=== PATIENT | male | born 2000 | race Caucasian/White ===

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

== ENCOUNTER 2021-05-11 18:42 | Emergency (ER) | payer MEDICAID, OTHER ==
[2021-05-11] MEDS ORDERED: Proparacaine 0.5% Ophth Soln 15 ML Bottle ONE (19:01)
[2021-05-11 19:20] VITALS: BP 140/95; PULSE 99
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
[2021-05-11] MEDS ORDERED: Proparacaine 0.5% Ophth Soln 15 ML Bottle EYERT ONE (20:03)
== END 2021-05-11 20:03 | disposition home or self-care (01) ==
LOC: JP.ED 18:42
DX: T15.91XA Foreign body on external eye, part unspecified, right eye, initial encounter (principal); Z88.2 Allergy status to sulfonamides; W22.8XXA Striking against or struck by other objects, initial encounter
CPT/HCPCS: 99283; A9270

== ENCOUNTER 2023-06-04 14:40 | Emergency (ER) | payer BC, MEDICAID, OTHER ==
[2023-06-04 15:38] VITALS: BP 130/93; PULSE 66
== END 2023-06-04 16:44 | disposition home or self-care (01) ==
LOC: JP.ED 14:40
DX: S81.811A Laceration without foreign body, right lower leg, initial encounter (principal); Z88.2 Allergy status to sulfonamides; Z79.899 Other long term (current) drug therapy; W26.8XXA Contact with other sharp object(s), not elsewhere classified, initial encounter
CPT/HCPCS: 12002; 99282

== ENCOUNTER 2024-01-14 21:29 | Emergency (ER) | payer MEDICAID, OTHER ==
[2024-01-14 22:05] VITALS: PULSE 82
[2024-01-14] MEDS: Ketorolac 30 MG/ML SDV IM ONE (23:08)
[2024-01-14] MEDS: Ketorolac 10 MG Tab PO ONE (23:35)
[2024-01-15 00:57] VITALS: BP 150/74
== END 2024-01-15 00:55 | disposition home or self-care (01) ==
LOC: JP.ED 21:29
DX: S30.0XXA Contusion of lower back and pelvis, initial encounter (principal); M54.31 Sciatica, right side; F17.210 Nicotine dependence, cigarettes, uncomplicated; Z88.2 Allergy status to sulfonamides; Z79.899 Other long term (current) drug therapy; W17.89XA Other fall from one level to another, initial encounter
CPT/HCPCS: 72220; 99284; A9270